=== PATIENT | female | born 1930 | race Caucasian/White ===

== ENCOUNTER 2017-08-15 12:59 | Emergency (ER) | payer OTHER ==
[~2017-08-15] VITALS: Ht 167.6 cm; Wt 49.4 kg
[~2017-08-15 12:59] MED LIST: BACL10TA PO; CALCCHW PO; DILT120T3 PO; FLNIN NAE; LORA-741 PO; MULTCAP36 PO; PRMVC PV; SIMV20TA2 PO
[2017-08-15 13:01] VITALS: TEMP 36.3; Ht 167.6 cm; Wt 49.4 kg
[2017-08-15 13:51] VITALS: O2SAT 96
[2017-08-15 13:57] LABS: BASO % 0.3 %; BASO ABS # 0.03 K/uL (0-0.2); EOS ABS # 0.09 K/uL (0-0.5); HEMATOCRIT 43.4 % (37-47); HEMOGLOBIN 14.8 g/dL (12.0-16.0); IG# 0.01 K/uL (0.00-0.02); LYMPH % 14.5 %; LYMPH ABS # 1.26 K/uL (1.2-3.4); MEAN CELL VOLUME 96.7 fL (80-100); MEAN CORPUSCULAR HGB CONC 34.1 g/dl (32-36); MEAN PLATELET VOLUME 10.2 fL (7.4-10.4); MONO % 8.4 %; MONO ABS # 0.73 K/uL (0.11-0.59); NEUT % 75.7 %; NEUT ABS # 6.58 K/uL (1.4-6.5); PLATELET COUNT 238 K/uL (130-400); RED CELL DISTRIBUTION WIDTH CV 14.6 % (11.5-14.5); RED CELL DISTRIBUTION WIDTH SD 51.5 fL (36.4-46.3)
[2017-08-15 14:05] LABS: PTT PATIENT 25.2 SECONDS (21.0-31.0)
[2017-08-15 14:14] LABS: CREATININE 1.14 mg/dl (0.60-1.20); POTASSIUM 4.2 mmol/L (3.5-5.1)
[2017-08-15 14:18] VITALS: BP 167/70; PULSE 57; O2SAT 97
--- NOTE | 2017-08-15 14:23 | DIAGNOSTIC IMAGING REPORT ---
CHEST 2 VIEWS ROUTINE CLINICAL HISTORY: sob eval for pna dyspnea COMPARISON STUDY: 04/30/2011 FINDINGS: Moderate emphysematous change. No focal infiltrate. Diaphragms are smooth. Mild chronic apical scarring like change. IMPRESSION: Moderate emphysematous change. No acute process. The above report was generated using voice recognition software. It may contain grammatical, syntax or spelling errors. Electronically signed by: Jean Pierre Jones M.D. 08/15/2017 2:21 PM Dictated Date/Time: 08/15/2017 2:21 PM
--- NOTE | 2017-08-15 19:46 | EMERGENCY ROOM VISIT NOTE ---
History Report prepared by Bridger: Rafa Mendoza Under the Supervision of: Dr. Rafa Valdivia M.D. First contact with patient: 13:18 Chief Complaint: ILLNESS Stated Complaint: SHAKINESS,SOB,DIZZINESS History of Present Illness The patient is a 86 year old female who presents to the Emergency Room with complaints of intermittent shortness of breath that began prior to arrival. Patient states that her symptoms are worsened because she is nervous about her son leaving for the weekend. She states that it is normal for her to get shortness of breath when she is nervous. Patient states that her son "made her come to the ER". Patient adds that she "feels good" since coming to the ER. Patient has associated symptoms of "funny noises in her head" for the past month. She states it sounds like "little bees buzzing" in her head. Patient denies shortness of breath with exertion, headaches, chest pain, abdominal pain , fevers, vomiting, diarrhea, lightheadedness, and dizziness. Source of History: patient Onset: Prior to arrival Position: chest Timing: intermittent Modifying Factors (Worsening): other (Nervousness) Modifying Factors (Relieving): other (None) Associated Symptoms: No fevers, No headache, No chest pain, No vomiting, No abdominal pain, No diarrhea Note: Patient denies lightheadedness and dizziness. Review of Systems See HPI for pertinent positives & negatives. A total of 10 systems reviewed and were otherwise negative. Past Medical & Surgical Medical Problems: (1) Hyperlipidemia (2) Seizure (3) Trigeminal neuralgia Family History Omitted secondary to age. Social History Smoking Status: Never Smoker Drug Use: none Housing Status: lives with family Occupation Status: retired Current/Historical Medications Scheduled Baclofen (Lioresal), 20 MG PO AMPM Diltiazem Hcl (Diltiazem Hcl), 120 MG PO DAILY Fluticasone Propionate (Flonase Nasal [place] *), 2 SPRAYS SUSHIL UD Multiple Vitamins W/ Minerals (Preservision/Lutein), 1 CAP PO BID Simvastatin (Zocor), 20 MG PO QPM Scheduled PRN Lorazepam (Ativan), 0.5 MG PO BID PRN Allergies Coded Allergies: Adhesives (Verified Allergy, Unknown, RASH, 08/15/17) Clarithromycin (Verified Allergy, Unknown, 08/15/17) Penicillins (Verified Allergy, Unknown, AMOXICILLIN, 08/15/17) Sulfa Drugs (Verified Allergy, Unknown, 08/15/17) Paroxetine (Verified Adverse Reaction, Mild, DIZZY;N&V, 08/15/17) Rofecoxib (Verified Adverse Reaction, Mild, DIZZY;N&V, 08/15/17) Uncoded Allergies: TYLENOL #3 (Adverse Reaction, Unknown, gi upset, 08/14/15) Physical Exam Vital Signs Date Time Temp Pulse Resp B/P (MAP) Pulse Ox O2 Delivery O2 Flow Rate FiO2 08/15/17 14:18 57 18 167/70 97 Room Air 08/15/17 13:56 59 08/15/17 13:51 96 Room Air 08/15/17 13:01 36.3 73 20 157/74 95 Room Air Physical Exam Constitutional: Vital signs reviewed. Eyes: Pupils are equal round reactive to light. Conjunctiva are noninjected. ENT: Pharynx is clear without erythema or exudate. Mucous membranes are moist. Neck supple without meningeal signs. Respiratory: Clear to auscultation bilaterally. Breath sounds are equal bilaterally. Cardiovascular: Regular rate and rhythm. No rubs or gallops. GI: Soft, nondistended and nontender. Bowel sounds are present. Musculoskeletal: No peripheral edema. No lower extremity tenderness. Integumentary: No cyanosis. Neurological: The patient is awake and alert. Cranial nerves II-XII are intact. Motor is 5 out of 5 all extremities. Sensation is intact to light touch all extremities. Normal speech. No pronator drift. No limb ataxia. Psychiatric: Normal affect. Medical Decision & Procedures ER Provider Diagnostic Interpretation: Radiology results as stated below per my review and the radiologist's interpretation: CHEST 2 VIEWS ROUTINE CLINICAL HISTORY: sob eval for pna dyspnea COMPARISON STUDY: 04/30/2011 FINDINGS: Moderate emphysematous change. No focal infiltrate. Diaphragms are smooth. Mild chronic apical scarring like change. IMPRESSION: Moderate emphysematous change. No acute process. The above report was generated using voice recognition software. It may contain grammatical, syntax or spelling errors. Electronically signed by: Jean Pierre Jones M.D. 08/15/2017 2:21 PM Laboratory Results 08/15/17 13:45 Red Blood Count 4.49, Mean Corpuscular Volume 96.7, Mean Corpuscular Hemoglobin 33.0, Mean Corpuscular Hemoglobin Concent 34.1, Mean Platelet Volume 10.2, Neutrophils (%) (Auto) 75.7, Lymphocytes (%) (Auto) 14.5, Monocytes (%) (Auto) 8.4, Eosinophils (%) (Auto) 1.0, Basophils (%) (Auto) 0.3, Neutrophils # (Auto) 6.58, Lymphocytes # (Auto) 1.26, Monocytes # (Auto) 0.73, Eosinophils # (Auto) 0.09, Basophils # (Auto) 0.03 08/15/17 13:45 Test 08/15/17 13:45 08/15/17 13:51 White Blood Count 8.70 K/uL (4.8-10.8) Red Blood Count 4.49 M/uL (4.2-5.4) Hemoglobin 14.8 g/dL (12.0-16.0) Hematocrit 43.4 % (37-47) Mean Corpuscular Volume 96.7 fL (80-100) Mean Corpuscular Hemoglobin 33.0 pg (25-34) Mean Corpuscular Hemoglobin Concent 34.1 g/dl (32-36) Platelet Count 238 K/uL (130-400) Mean Platelet Volume 10.2 fL (7.4-10.4) Neutrophils (%) (Auto) 75.7 % Lymphocytes (%) (Auto) 14.5 % Monocytes (%) (Auto) 8.4 % Eosinophils (%) (Auto) 1.0 % Basophils (%) (Auto) 0.3 % Neutrophils # (Auto) 6.58 K/uL (1.4-6.5) Lymphocytes # (Auto) 1.26 K/uL (1.2-3.4) Monocytes # (Auto) 0.73 K/uL (0.11-0.59) Eosinophils # (Auto) 0.09 K/uL (0-0.5) Basophils # (Auto) 0.03 K/uL (0-0.2) RDW Standard Deviation 51.5 fL (36.4-46.3) RDW Coefficient of Variation 14.6 % (11.5-14.5) Immature Granulocyte % (Auto) 0.1 % Immature Granulocyte # (Auto) 0.01 K/uL (0.00-0.02) Prothrombin Time 10.1 SECONDS (9.0-12.0) Prothromb Time International Ratio 1.0 (0.9-1.1) Activated Partial Thromboplast Time 25.2 SECONDS (21.0-31.0) Partial Thromboplastin Ratio 1.0 Anion Gap 6.0 mmol/L (3-11) Est Creatinine Clear Calc Drug Dose 26.6 ml/min Estimated GFR () 49.7 Estimated GFR (Non- 42.9 BUN/Creatinine Ratio 24.1 (10-20) Calcium Level 9.0 mg/dl (8.5-10.1) Bedside Troponin I < 0.030 ng/ml (0-0.045) Laboratory results as reviewed by me. ECG Per My Interpretation Indication: SOB/dyspnea Rate (beats per minute): 70 Rhythm: normal sinus Findings: no ectopy, other (No ST elevations) ED Course 1320: The patient was evaluated in room A2. A complete history and physical exam was performed. 1430: Upon reevaluation, the patient appeared to have improvement of her symptoms. I discussed mima's findings with her. She verbalized agreement of the treatment plan. She was discharged home. Medical Decision This is an 86-year-old female who presents with shortness of breath. Differential diagnosis includes anxiety, anemia, pneumonia, cardiac, effusion. I did perform a limited focused review of portions of the patient's old chart on the electronic medical record. The patient has had no recent pertinent visits to this hospital. I did evaluate the patient as noted above. The patient is presenting because she states that her son forced her to come in. Her son is leaving for the weekend and she will be by herself. She does state she is able to take care of herself but she gets nervous. She states that whenever she gets nervous she gets a little short of breath. This is not unusual for her. She denies having shortness of breath with exertion. She has no associated symptoms such as lightheadedness or dizziness. She denies chest discomfort or pain. Currently she is asymptomatic. IV access was established. The patient was placed on a continuous awake overnight monitor. I did order and personally review the patient's 12- lead EKG and chest x-ray as described above. I did order and review the patient 's blood work as noted in the electronic medical record. She is not anemic. Troponin is negative. I did reassess the patient. She has no symptoms at this time. I did discuss the test results with the patient. I did recommend follow- up with her regular physician. She was discharged in good condition and told to return should she have any worsening symptoms. Medication Reconcilliation Current Medication List: was not reviewed Blood Pressure Screening Patient's blood pressure: Elevated blood pressure Blood pressure disposition: Referred to PCP Impression Primary Impression: Dyspnea Scribe Attestation The scribe's documentation has been prepared under my direct and personally reviewed by me in its entirety. I confirm that the note above accurately reflects all work, treatment, procedures, and medical decision making performed by me. Departure Information Dispostion Home / Self-Care Referrals Mark Ramos M.D.([place]) (PCP) Forms HOME CARE DOCUMENTATION FORM, IMPORTANT VISIT INFORMATION, WORK / SCHOOL INSTRUCTIONS Patient Instructions ED Dyspnea Shortness of Breath, My [facility] Additional Instructions You have been examined and treated today on an emergency basis only. This is not a substitute for, or an effort to provide, complete comprehensive medical care. It is impossible to recognize and treat all injuries or illnesses in a single emergency department visit. It is therefore important that you follow up closely with your physician. Call as soon as possible for an appointment. Return for worsening symptoms or if you develop fever, vomiting, chest discomfort, dizziness or any other concerning symptoms. Problem Qualifiers Primary Impression: Dyspnea Dyspnea type: unspecified Qualified Codes: R06.00 - Dyspnea, unspecified
== END 2017-08-15 14:37 | disposition home or self-care (01) ==
LOC: C.EDB 13:00 → C.EDA 14:37
DX: R06.00 Dyspnea, unspecified (principal); E78.5 Hyperlipidemia, unspecified; R56.9 Unspecified convulsions; Z88.0 Allergy status to penicillin; Z88.8 Allergy status to other drugs, medicaments and biological substances

== ENCOUNTER 2018-01-11 16:34 | Emergency (ER) | payer OTHER ==
[~2018-01-11] VITALS: Ht 165.1 cm; Wt 48.2 kg
[~2018-01-11 16:34] MED LIST changes: -CALCCHW PO; -PRMVC PV
[2018-01-11 16:49] VITALS: Ht 165.1 cm; Wt 48.2 kg
--- NOTE | 2018-01-11 18:18 | DIAGNOSTIC IMAGING REPORT ---
PELVIS 1 OR 2 VIEW ROUTINE CLINICAL HISTORY: Left hip pain, swelling and bruising following fall. COMPARISON STUDY: Pelvis radiograph July 02, 2009. 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 There is no acute fracture within the pelvis or hips. Sacroiliac joints and symphysis pubis are intact. IMPRESSION: 1. No acute fracture within the pelvis or hips. 2. Anatomic alignment of total bilateral hip arthroplasties. No periprosthetic fracture. Electronically signed by: Varun Gomez M.D. 01/11/2018 6:17 PM Dictated Date/Time: 01/11/2018 6:13 PM
--- NOTE | 2018-01-11 18:21 | EMERGENCY ROOM VISIT NOTE ---
History First contact with patient: 17:15 Chief Complaint: FALL Stated Complaint: FALL;BACK PAIN History of Present Illness The patient is a 87 year old female who presents to the Emergency Room via private vehicle accompanied by male with complaints of "fall, back pain". The patient states that earlier today, just after lunchtime and before 2 PM she notes that she was at home, had socks on when and was ambulating down steps. She notes she has done this numerous times before without difficulty. She states that when she went to. Stepped down she slipped with her feet flying forward, and she landed on her buttocks and slid down about 5 steps. She notes that she did not lose consciousness, strike her head, nor does she have any head pain, neck pain, chest pain, shortness of breath, back pain, abdominal pain or right leg pain or upper extremity pain. She notes pain currently overlying the left hip. She points to a bruised and slightly raised region overlying the left greater trochanter as a location of which she is concerned about because it is now feeling hard there. 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 She rates her overall pain is a 5/10. She declines pain medication while here. She notes that she takes no blood thinners. She states that the fall was strictly because she slipped, and she did not have a syncopal event, nor any chest pain or shortness of breath. Review of Systems A complete 10-point Review of Systems was discussed with the patient, with pertinent positives and negatives listed in the History of Present Illness. All remaining Review of Systems questions can be considered negative unless otherwise specified. Past Medical/Surgical History Medical Problems: (1) Hyperlipidemia (2) Seizure (3) Trigeminal neuralgia Social History Smoking Status: Never Smoker Drug Use: none Housing Status: lives with family Occupation Status: retired Current/Historical Medications Scheduled Baclofen (Lioresal), 20 MG PO AMPM Diltiazem Hcl (Diltiazem Hcl), 120 MG PO DAILY Fluticasone Propionate (Flonase Nasal [place] *), 2 SPRAYS SUSHIL UD Multiple Vitamins W/ Minerals (Preservision/Lutein), 1 CAP PO BID Simvastatin (Zocor), 20 MG PO QPM Scheduled PRN Lorazepam (Ativan), 0.5 MG PO BID PRN Physical Exam Vital Signs Date Time Temp Pulse Resp B/P (MAP) Pulse Ox O2 Delivery O2 Flow Rate FiO2 01/11/18 19:08 36.9 70 16 176/86 95 01/11/18 18:56 70 16 176/86 95 Room Air 01/11/18 16:49 36.9 69 18 171/84 95 Physical Exam VITAL SIGNS - Vital signs and nursing notes were reviewed. Stable. Afebrile. GENERAL -87-year-old female appearing her stated age who is in no acute distress. Communicates well with provider and answers questions appropriately. SKIN - Without rashes. No meningeal or petechial rash. Overlying the patient' s left greater trochanter, the skin exhibits a bruise. This is darkened in nature. The integument is intact. No bony deformity noted to inspection. HEAD - NC/AT. No dubose signs or raccoon's eyes. EYES - PERRL with EOMI bilaterally. Sclera anicteric. No hyphema. EARS - No deformities of external structures noted on gross examination bilaterally. No hemotympanum. NOSE - Midline and without cyanosis. No epistaxis or purulent drainage noted. MOUTH/OROPHARYNX - Without perioral cyanosis. NECK - Neck with FROM. No C-spine tenderness. LUNGS - Chest wall symmetric without accessory muscle use, intercostals retractions, or central cyanosis. Normal vesicular breath sounds CTA B/L. No wheezes, rales, or rhonchi appreciated. CARDIAC - RRR with S1/S2. No murmur, rubs, or gallops appreciated. EXTREMITIES - No clubbing or peripheral cyanosis. No pretibial edema present. There is tenderness overlying the left greater trochanter to palpation. Integument intact. Leg length is symmetric bilaterally. Patient is able to ambulate. Patient can axially load. +5/5 strength noted in UE/LE bilaterally. She is neurovascularly intact in the lower extremities. MUSCULOSKELETAL: There is no tenderness overlying the spinous processes of the cervical, thoracic or lumbar region to palpation. No tenderness in the abdomen , chest or neck region. Only area of tenderness is overlying the left greater trochanter. No tenderness down the right lower extremity. No other tenderness identified to palpation in the left lower extremity. NEUROLOGIC - Cranial nerves II through XII grossly intact. Sensory intact to light touch throughout. PSYCH - A&O, and cooperates fully with examiner. Pt is very pleasant and interacts well with examiner. Medical Decision & Procedures ER Provider Diagnostic Interpretation: PELVIS 1 OR 2 VIEW ROUTINE CLINICAL HISTORY: Left hip pain, swelling and bruising following fall. COMPARISON STUDY: Pelvis radiograph July 02, 2009. 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 There is no acute fracture within the pelvis or hips. Sacroiliac joints and symphysis pubis are intact. IMPRESSION: 1. No acute fracture within the pelvis or hips. 2. Anatomic alignment of total bilateral hip arthroplasties. No periprosthetic fracture. Electronically signed by: Varun Gomez M.D. 01/11/2018 6:17 PM Dictated Date/Time: 01/11/2018 6:13 PM L FEMUR 2 VIEWS ROUTINE CLINICAL HISTORY: Left hip pain, swelling and bruising following fall. COMPARISON: Pelvis radiograph July 02, 2009. FINDINGS: Alignment of the total left hip arthroplasty is anatomic. Mild heterotopic ossification is noted. Subtle cortical irregularity of the subtrochanteric portion of the left femur is chronic. Hardware is intact. No acute left femoral fracture is present. IMPRESSION: 1. No acute fracture of the left femur. 2. Status post total left hip arthroplasty. No periprosthetic fracture identified. Electronically signed by: Varun Gomez M.D. 01/11/2018 6:25 PM Dictated Date/Time: 01/11/2018 6:23 PM Medical Decision Patient was seen and evaluated as above in room D7. Review was performed of nursing notes and vital signs. After obtaining a thorough history and physical examination the above work up was performed. She presents to us today status post fall with pain overlying the left greater trochanter. She is concerned about the bruising in this region. There is no spine tenderness, or other pelvis/extremity tenderness. X-ray was obtained of the pelvis and femur. No fracture noted. I suspect soft tissue contusion overlying the bony prominence. At this time I recommend a walker to help with ambulation she is to follow with orthopedics if her pain persists or return here with worsening. They were educated upon risk of occult fracture. The patient was educated upon management , educated upon todays findings/results, educated upon symptoms in which to return, had questions answered prior to discharge, and was discharged home in good condition. Case was discussed with the attending physician. I attest that I have personally reviewed the patient medication list. I attest that I have reviewed the patient's blood pressure and it was found to be elevated likely secondary to situation. Repeat was elevated, she notes no chest pain or shortness of breath or evidence of stroke. Accompanying male, notes that she is likely anxious to leave. I believe this is likely the case as well as her pain. I do not suspect this is an emergent process. In the evaluation and treatment of this patient the following differential diagnoses were entertained: Left hip fracture, dislocation, acute intra- abdominal injury, pelvis fracture, spine fracture, subluxation, soft tissue contusion, among others. Impression Primary Impression: Fall Additional Impression: Hip pain, left Departure Information Dispostion Home / Self-Care Condition GOOD Referrals Mark Ramos M.D.([place]) (PCP) Lei Gaxiola D.O. Patient Instructions My [facility] Additional Instructions You have been treated in the Emergency Department for Hip Pain. X-rays at this time show no fracturing your hip. This does not rule out the potential for occult/hairline fracture. If you have persistence of pain I recommend following up with your family doctor or orthopedics in the next few days. I have provided Dr. Gaxiola's number for you to call if the pain persists beyond a few days For pain control, you can use the following [id number] medicines (if >12 yo): - Regular strength (325mg/tab) Tylenol (acetaminophen) 2 tabs every 4-6 hours as needed. Do not exceed 12 tablets in a 24 hour period. Avoid taking more than 3 grams (3000 mg) of Tylenol per day. This includes any other sources of acetaminophen you may take on a regular basis. If this is a recent injury (<24 hrs), ice can be applied to the area of pain for the first 3 days to help decrease pain and inflammation. Ice massages can be performed by freezing water in a paper cup, peeling back the cup to expose the ice and then massaging over the affected area. You have been provided the number for an Orthopaedic Surgeon. You should call this number as soon as possible to establish a follow-up visit from today's Emergency Department visit. Be cautious with your hip movements until your pain is tolerable. Use the walker you have been provided to keep ALL weight off of the hip until weight bearing is tolerable. Return to the Emergency Department if your current symptoms worsen despite treatment course outlined above. Problem Qualifiers
--- NOTE | 2018-01-11 18:27 | DIAGNOSTIC IMAGING REPORT ---
L FEMUR 2 VIEWS ROUTINE CLINICAL HISTORY: Left hip pain, swelling and bruising following fall. COMPARISON: Pelvis radiograph July 02, 2009. FINDINGS: Alignment of the total left hip arthroplasty is anatomic. Mild heterotopic ossification is noted. Subtle cortical irregularity of the subtrochanteric portion of the left femur is chronic. Hardware is intact. No acute left femoral fracture is present. IMPRESSION: 1. No acute fracture of the left femur. 2. Status post total left hip arthroplasty. No periprosthetic fracture identified. Electronically signed by: Varun Gomez M.D. 01/11/2018 6:25 PM Dictated Date/Time: 01/11/2018 6:23 PM
[2018-01-11 19:08] VITALS: BP 176/86; PULSE 70; TEMP 36.9; O2SAT 95
== END 2018-01-11 19:08 | disposition home or self-care (01) ==
LOC: C.EDB 16:35 → C.EDD 19:08
DX: M25.552 Pain in left hip (principal); W10.9XXA Fall (on) (from) unspecified stairs and steps, initial encounter; Y92.009 Unspecified place in unspecified non-institutional (private) residence as the place of occurrence of the external cause; E78.5 Hyperlipidemia, unspecified; Z79.899 Other long term (current) drug therapy; Z96.643 Presence of artificial hip joint, bilateral; Z96.653 Presence of artificial knee joint, bilateral; S70.02XA Contusion of left hip, initial encounter